=== PATIENT | female | born 1990 | race Caucasian/White ===

== ENCOUNTER 2016-04-29 13:42 | Emergency (ER) | payer OTHER ==
[~2016-04-29] VITALS: Ht 180.3 cm; Wt 103.6 kg
[2016-04-29 13:49] VITALS: BP 192/88; TEMP 98.2
[2016-04-29] MEDS ORDERED: MIRENA52 MG IY (13:52)
[2016-04-29] MEDS ORDERED: XANAX .25M0.25 MG/TA PO (13:52)
[2016-04-29 15:04] LABS: PH 6 (5-8); URINE APPEARANCE Hazy; URINE BACTERIA None Seen /hpf; URINE BILIRUBIN Negative (NEGATIVE); URINE BLOOD 1+ (NEGATIVE); URINE COLOR Yellow; URINE GLUCOSE Negative (NEGATIVE); URINE KETONE Negative (NEGATIVE); URINE RBC 0-2 /hpf; URINE UROBILINOGEN Negative (NEGATIVE)
[2016-04-29] MEDS ORDERED: ULTRAM 50MG TAB50 MG PO (16:08)
[2016-04-29] MEDS ORDERED: FLEXERIL 1010 MG/TAB PO (16:08)
[2016-04-29] MEDS ORDERED: MEDROL 4MG DOSPA4 MG PO (16:08)
[2016-04-29 16:19] VITALS: PULSE 79
[2016-04-29 17:55] LABS: CHLAMYDIA/TRACH by PCR Female Not Detected; NEISSERIA GON by PCR Female Not Detected
== END 2016-04-29 16:19 | disposition home or self-care (01) ==
LOC: COL.ER 13:42
PROVIDERS: Physician Assistant
DX: M54.5 Low back pain (principal); R10.2 Pelvic and perineal pain; Z97.5 Presence of (intrauterine) contraceptive device
CPT/HCPCS: J1885